=== PATIENT | male | born 1955 | race Caucasian/White ===

== ENCOUNTER 2017-10-27 01:44 | Inpatient (IN) | payer BC ==
[~2017-10-27] VITALS: Ht 170.2 cm; Wt 81.6 kg
[2017-10-27 01:44] VITALS: BP_SYST 197
[2017-10-27] MEDS ORDERED: NACL 0.9% 1,000 ML IV ONE (02:00)
[2017-10-27] MEDS ORDERED: ONDANSETRON HCL 4 MG/2 ML VIAL IVP ONE ×2 (02:00→10:01)
[2017-10-27] MEDS ORDERED: KETOROLAC TROMETHAMINE 30 MG VIAL IVP ONE ×2 (02:00→10:01)
[2017-10-27 02:15] LABS: BASOPHILS # (AUTO) 0.1 K/uL (0.0-0.2); EOSINOPHILS # (AUTO) 0.3 K/uL (0.0-0.4); EOSINOPHILS % (AUTO) 3.7 % (0.0-4.0); HEMATOCRIT 47.7 % (36-54); HEMOGLOBIN 15.5 g/dL (14.0-18.0); LYMPHOCYTES # (AUTO) 2.8 K/uL (1.0-5.5); LYMPHOCYTES % (AUTO) 38.7 % (20.5-51.5); MEAN CORPUSCULAR HEMOGLOBIN 29 pg (27-31); MEAN CORPUSCULAR HGB CONC 33 % (32-36); MEAN CORPUSCULAR VOLUME 90 fL (79.0-98.0); MONOCYTES # (AUTO) 0.7 K/uL (0.0-1.0); MONOCYTES % (AUTO) 9.6 % (1.7-9.3); NEUTROPHILS # (AUTO) 3.4 K/uL (1.8-7.7); PLATELET COUNT (AUTO) 178 K/uL (130-430); RED BLOOD CELL COUNT(AUTO) 5.27 MIL/uL (4.2-6.2); RED CELL DISTRIBUTION WIDTH 13.4 % (9.0-15.0); WHITE BLOOD COUNT (AUTO) 7.3 K/uL (4.8-10.8)
[2017-10-27 02:27] LABS: CALCIUM 9.4 mg/dL (8.4-11.0); CREATININE 0.82 mg/dL (0.55-1.30); POTASSIUM 3.5 mmol/L (3.5-5.1)
[2017-10-27] MEDS ORDERED: hydrALAZINE HCL 20 MG/ML VIAL IVP ONE (02:30)
[2017-10-27 02:31] LABS: ALBUMIN 3.6 g/dL (3.4-4.8); TOTAL BILIRUBIN 0.5 mg/dL (0.0-1.0)
[2017-10-27 02:32] LABS: PROTHROMBIN TIME 10.3 SECS (9.5-12.5)
[2017-10-27] MEDS ORDERED: fentaNYL CITRATE/PF 100 MCG/2 ML AMP IVP ONE ×6 (02:45→10:01)
[2017-10-27] MEDS ORDERED: ONDANSETRON HCL 4 MG/2 ML VIAL IVP PRN ×2 (03:45→11:00)
[2017-10-27] MEDS ORDERED: D5LR 1,000 ML IV SCH ×2 (03:45→21:00)
[2017-10-27] MEDS ORDERED: MORPHINE 2 MG/ML INJ. SYRINGE IVP PRN (03:45)
[2017-10-27] MEDS ORDERED: ACETAMINOPHEN 325 MG TABLET PO PRN (03:45)
[2017-10-27] MEDS ORDERED: fentaNYL CITRATE/PF 100 MCG/2 ML AMP ONE (03:53)
[2017-10-27] MEDS ORDERED: MIDAZOLAM HCL 5 MG/5 ML VIAL ONE ×2 (03:54→06:36)
[2017-10-27] MEDS ORDERED: LIDOCAINE VISCOUS 2%, 15 ML UDC ONE (04:00)
[2017-10-27] MEDS ORDERED: LIDOCAINE 2%, 20 ML MDV ONE ×3 (04:01→04:04)
[2017-10-27] MEDS ORDERED: MIDAZOLAM HCL 5 MG/5 ML VIAL IVP ONE ×2 (04:10→10:01)
[2017-10-27] MEDS ORDERED: LIDOCAINE JELLY 5 ML TUBE ONE (04:13)
[2017-10-27] MEDS ORDERED: LIDOCAINE 2%, 20 ML MDV INJ ONE ×2 (05:00)
[2017-10-27] MEDS ORDERED: MIDAZOLAM HCL 2 MG/2 ML VIAL (VERSED) IVP ONE ×3 (05:00)
[2017-10-27 05:30] VITALS: BP_SYST 173
[2017-10-27] MEDS: MORPHINE 4 MG/ML INJ. SYRINGE IVP PRN ×3 (06:10→23:52)
[2017-10-27] MEDS: MEPERIDINE HCL/PF 100 MG/ML AMP ONE ×2 (07:31→07:47)
[2017-10-27] MEDS: MIDAZOLAM HCL 5 MG/5 ML VIAL ONE ×4 (07:31→07:48)
[2017-10-27] MEDS ORDERED: MEPERIDINE HCL/PF 100 MG/ML AMP ONE (07:37)
[2017-10-27] MEDS ORDERED: SIMETHICONE 40 MG/0.6 ML ML ONE (07:38)
[2017-10-27] MEDS ORDERED: LORazepam 2 MG/ML VIAL IVP PRN ×2 (10:00)
[2017-10-27] MEDS ORDERED: IPRATROPIUM/ALBUTEROL SULFATE 3 ML AMPUL.NEB INH PRN (10:00)
[2017-10-27] MEDS ORDERED: METOPROLOL TARTRATE 5 MG/5 ML VIAL IVP ONE (10:01)
[2017-10-27] MEDS ORDERED: PROPOFOL 200MG/ 20ML VIAL (DIPRIVAN) IV ONE (10:01)
[2017-10-27] MEDS ORDERED: LR 1,000 ML IV.SOLN IV ONE (10:01)
[2017-10-27] MEDS ORDERED: ROCURONIUM BROMIDE 10 MG/ML (ZEMURON) IV ONE (10:01)
[2017-10-27] MEDS ORDERED: CEFAZOLIN 2 GM IVPB PREMIX 50 ML IV ONE (10:01)
[2017-10-27] MEDS ORDERED: NEOSTIGMINE METHYLSULFATE 1 MG/ML, 10 ML VIAL IVP ONE (10:01)
[2017-10-27] MEDS ORDERED: SEVOFLURANE 15 MIN GAS INH ONE (10:01)
[2017-10-27] MEDS ORDERED: NS IRRIG SOLN 1000 ML IR ONE (10:01)
[2017-10-27] MEDS ORDERED: GLYCOPYRROLATE 0.2 MG/ML VIAL IJ ONE (10:01)
[2017-10-27] MEDS ORDERED: LR 1,000 ML IV SCH (10:48)
[2017-10-27] MEDS ORDERED: HYDROmorphone 2 MG/ML VIAL IVP PRN ×2 (11:00)
[2017-10-27] MEDS: IPRATROPIUM/ALBUTEROL SULFATE 3 ML AMPUL.NEB INH SCH ×4 (11:00→23:13)
[2017-10-27] MEDS ORDERED: MEPERIDINE HCL/PF 25 MG/ML DISP.SYRIN IVP PRN ×2 (11:00)
[2017-10-27] MEDS ORDERED: KETOROLAC TROMETHAMINE 30 MG VIAL IVP PRN (11:00)
[2017-10-27] MEDS ORDERED: HYDROmorphone 1 MG INJ. 1 MG/ML AMPUL IVP PRN (11:00)
[2017-10-27] MEDS ORDERED: HYDROmorphone 1 MG INJ. 1 MG/ML AMPUL ONE (12:01)
[2017-10-27 12:20] VITALS: BP_SYST 150
[2017-10-27] MEDS: FOLIC ACID 1 MG, THIAMINE HCL 100 MG, MAGNESIUM SULFATE 1 GM, MVI 10 ML in NACL 0.9% 1,... IV SCH (12:49)
[2017-10-27] MEDS: LABETALOL 100 MG/ 20ML VIAL IVP PRN ×2 (13:24→14:53)
[2017-10-27 15:59] VITALS: BP_SYST 152
[2017-10-27 19:53] VITALS: BP_SYST 141
[2017-10-28 00:13] VITALS: BP_SYST 139
[2017-10-28] MEDS: IPRATROPIUM/ALBUTEROL SULFATE 3 ML AMPUL.NEB INH SCH ×6 (03:38→23:18)
[2017-10-28 04:01] VITALS: BP_SYST 139
[2017-10-28] MEDS: MORPHINE 4 MG/ML INJ. SYRINGE IVP PRN ×4 (06:23→21:47)
[2017-10-28 07:06] LABS: BASOPHILS % (AUTO) 0.1 % (0.0-2.0); HEMATOCRIT 42.5 % (36-54); HEMOGLOBIN 14.1 g/dL (14.0-18.0); LYMPHOCYTES # (AUTO) 1.3 K/uL (1.0-5.5); LYMPHOCYTES % (AUTO) 12.3 % (20.5-51.5); MEAN CORPUSCULAR HEMOGLOBIN 30 pg (27-31); MEAN CORPUSCULAR HGB CONC 33 % (32-36); MEAN CORPUSCULAR VOLUME 91 fL (79.0-98.0); MONOCYTES # (AUTO) 0.8 K/uL (0.0-1.0); MONOCYTES % (AUTO) 7.7 % (1.7-9.3); NEUTROPHILS # (AUTO) 8.8 K/uL (1.8-7.7); NEUTROPHILS % (AUTO) 79.9 % (40.0-70.0); PLATELET COUNT (AUTO) 165 K/uL (130-430); RED BLOOD CELL COUNT(AUTO) 4.68 MIL/uL (4.2-6.2); RED CELL DISTRIBUTION WIDTH 13.5 % (9.0-15.0); WHITE BLOOD COUNT (AUTO) 10.9 K/uL (4.8-10.8)
[2017-10-28 07:21] LABS: CALCIUM 8.4 mg/dL (8.4-11.0); CREATININE 0.76 mg/dL (0.55-1.30); POTASSIUM 4.3 mmol/L (3.5-5.1)
[2017-10-28 07:29] LABS: ALBUMIN 2.8 g/dL (3.4-4.8); TOTAL BILIRUBIN 0.5 mg/dL (0.0-1.0)
[2017-10-28 07:49] VITALS: BP_SYST 139
[2017-10-28] MEDS: FOLIC ACID 1 MG, THIAMINE HCL 100 MG, MAGNESIUM SULFATE 1 GM, MVI 10 ML in NACL 0.9% 1,... IV SCH (10:30)
[2017-10-28] MEDS ORDERED: IPRATROPIUM/ALBUTEROL SULFATE 3 ML AMPUL.NEB ONE (11:04)
[2017-10-28 11:28] VITALS: BP_SYST 139
[2017-10-28] MEDS ORDERED: INSULIN REGULAR, HUMAN 100 UNITS/ML, 10 ML VIAL (novoLIN R) SUBCUT PRN (12:45)
[2017-10-28] MEDS ORDERED: DEXTROSE 50% JECT 50 ML DISP.SYRIN IVP PRN (12:45)
[2017-10-28] MEDS ORDERED: *PPN PER PHARMACY XX PRN (12:45)
[2017-10-28 12:55] LABS: CHOLESTEROL 213 mg/dL (<200); HDL CHOLESTEROL 80 mg/dL (>45); LDL CHOLESTEROL 120 mg/dL (<100); TRIGLYCERIDES 35 mg/dL (30-150)
[2017-10-28 15:30] VITALS: BP_SYST 154
[2017-10-28 20:00] VITALS: BP_SYST 163
[2017-10-28] MEDS: LABETALOL 100 MG/ 20ML VIAL IVP PRN (21:49)
[2017-10-28] MEDS: D5LR 1,000 ML IV SCH (23:30)
[2017-10-29] VITALS (9 sets, daily range): BP systolic 138–186
[2017-10-29] MEDS: MORPHINE 4 MG/ML INJ. SYRINGE IVP PRN ×5 (01:51→22:32)
[2017-10-29] MEDS: IPRATROPIUM/ALBUTEROL SULFATE 3 ML AMPUL.NEB INH SCH ×6 (02:55→23:28)
[2017-10-29 07:04] LABS: BASOPHILS % (AUTO) 0.5 % (0.0-2.0); EOSINOPHILS # (AUTO) 0.1 K/uL (0.0-0.4); EOSINOPHILS % (AUTO) 1.3 % (0.0-4.0); HEMATOCRIT 43.9 % (36-54); HEMOGLOBIN 14.5 g/dL (14.0-18.0); LYMPHOCYTES % (AUTO) 21.6 % (20.5-51.5); MEAN CORPUSCULAR HEMOGLOBIN 30 pg (27-31); MEAN CORPUSCULAR HGB CONC 33 % (32-36); MEAN CORPUSCULAR VOLUME 90 fL (79.0-98.0); MONOCYTES # (AUTO) 0.9 K/uL (0.0-1.0); MONOCYTES % (AUTO) 10.1 % (1.7-9.3); NEUTROPHILS # (AUTO) 6.2 K/uL (1.8-7.7); NEUTROPHILS % (AUTO) 66.5 % (40.0-70.0); PLATELET COUNT (AUTO) 153 K/uL (130-430); RED BLOOD CELL COUNT(AUTO) 4.87 MIL/uL (4.2-6.2); WHITE BLOOD COUNT (AUTO) 9.2 K/uL (4.8-10.8)
[2017-10-29 07:36] LABS: ALBUMIN 2.9 g/dL (3.4-4.8); BILIRUBIN,DIRECT 0.3 mg/dL (0.0-0.3); CALCIUM 8.5 mg/dL (8.4-11.0); CREATININE 0.59 mg/dL (0.55-1.30); PHOSPHORUS 2.9 mg/dL (2.7-4.5); TOTAL BILIRUBIN 0.7 mg/dL (0.0-1.0)
[2017-10-29] MEDS: D5LR 1,000 ML IV SCH ×2 (07:36→21:34)
[2017-10-29] MEDS: LABETALOL 100 MG/ 20ML VIAL IVP PRN ×2 (13:44→23:30)
[2017-10-29] MEDS ORDERED: TPN PERIPHERAL 0.0001 ML, SODIUM CHLORIDE 40 MEQ, POTASSIUM CHLORIDE 20 MEQ, K PHOS 9 M... IV SCH ×10 (18:00)
[2017-10-29] MEDS ORDERED: FAT EMULSIONS 250 ML IV SCH (18:00)
[2017-10-30] VITALS (9 sets, daily range): BP systolic 110–178
[2017-10-30] MEDS: MORPHINE 4 MG/ML INJ. SYRINGE IVP PRN ×2 (03:05→12:57)
[2017-10-30] MEDS: LABETALOL 100 MG/ 20ML VIAL IVP PRN ×2 (04:00→14:24)
[2017-10-30] MEDS: IPRATROPIUM/ALBUTEROL SULFATE 3 ML AMPUL.NEB INH SCH ×4 (04:07→15:49)
[2017-10-30] MEDS: D5LR 1,000 ML IV SCH (05:19)
[2017-10-30 07:32] LABS: INR 1.1 (0.80-1.20); PROTHROMBIN TIME 11.1 SECS (9.5-12.5)
[2017-10-30 07:39] LABS: ALBUMIN 2.7 g/dL (3.4-4.8); BILIRUBIN,DIRECT 0.3 mg/dL (0.0-0.3); TOTAL BILIRUBIN 0.9 mg/dL (0.0-1.0)
[2017-10-30] MEDS ORDERED: LOSARTAN POTASSIUM 50 MG TABLET (COZAAR) PO ONE (18:45)
== END 2017-10-30 18:55 | disposition home or self-care (01) | DRG 327 ==
LOC: SED 01:44 → STU 03:39 → SMU 10-28 19:30
PROVIDERS: ADMIT Internal Medicine; ATTEND Internal Medicine
PROC: 0BJ08ZZ Inspection of Tracheobronchial Tree, Via Natural or Artificial Opening Endoscopic (ICD-10-PCS; 2017-10-27)
PROC: 0DBU0ZZ Excision of Omentum, Open Approach (ICD-10-PCS; 2017-10-27)
PROC: 0DJ08ZZ Inspection of Upper Intestinal Tract, Via Natural or Artificial Opening Endoscopic (ICD-10-PCS; 2017-10-27)
PROC: 0DC60ZZ Extirpation of Matter from Stomach, Open Approach (ICD-10-PCS; principal; 2017-10-27 04:00)
DX: T18.2XXA Foreign body in stomach, initial encounter (principal); K42.0 Umbilical hernia with obstruction, without gangrene; E44.0 Moderate protein-calorie malnutrition; F17.210 Nicotine dependence, cigarettes, uncomplicated; K74.60 Unspecified cirrhosis of liver; I70.90 Unspecified atherosclerosis; F10.20 Alcohol dependence, uncomplicated; Y90.9 Presence of alcohol in blood, level not specified; H54.61 Unqualified visual loss, right eye, normal vision left eye; I10 Essential (primary) hypertension; J44.9 Chronic obstructive pulmonary disease, unspecified; X58.XXXA Exposure to other specified factors, initial encounter; Y93.89 Activity, other specified; Y92.89 Other specified places as the place of occurrence of the external cause; Y99.8 Other external cause status; Z68.28 Body mass index [BMI] 28.0-28.9, adult
CPT/HCPCS: 31625; 36415; 43235; 71020-TC; 76700-TC; 80053; 80061; 80076; 82248-TC; 82962; 83735-TC; 84100-TC; 84478-TC; 85025; 85610-TC; 85730-TC; 87070-TC; 87075-TC; 87081; 93005; 93306; 94640; 94760; 96374; 96375; 99285; J0360; J0610; J0690; J1170; J1885; J1956; J2001; J2060; J2175; J2250; J2270; J2405; J2704; J2710; J3010; J3411; J3465; J3475; J3480; J3490; J7030; J7120; J7131

== ENCOUNTER 2019-02-23 06:20 | Inpatient (IN) | payer OTHER ==
[~2019-02-23] VITALS: Ht 170.2 cm; Wt 80.7 kg
[~2019-02-23 06:20] MED LIST: LOSA50TA3 PO; SOFO1TAB PO
[2019-02-23] MEDS ORDERED: LevALBUTEROL HCL 1.25 MG/0.5 ML *CONC.* VIAL.NEB (XOPENEX CONC.) INH ONE ×2 (07:15→08:06)
[2019-02-23] MEDS ORDERED: CEFAZOLIN SOD 1 GM/ ISO 50 ML PREMIX IV ONE (07:15)
[2019-02-23] MEDS ORDERED: POLYMYXIN 500,000/BACIT.10,000 UNITS in NS IRR 1 L IR ONE ×2 (08:14→10:15)
[2019-02-23] MEDS ORDERED: ONDANSETRON HCL 4 MG/2 ML VIAL IVP ONE (08:55)
[2019-02-23] MEDS ORDERED: LR 1,000 ML IV.SOLN IV ONE (08:55)
[2019-02-23] MEDS ORDERED: NS 100 ML BAG IV ONE (08:55)
[2019-02-23] MEDS ORDERED: DEXAMETHASONE SOD PHOSPHATE 4 MG/ML VIAL IVP ONE (08:55)
[2019-02-23] MEDS ORDERED: KETOROLAC TROMETHAMINE 30 MG VIAL IVP ONE (08:55)
[2019-02-23] MEDS ORDERED: SEVOFLURANE 15 MIN GAS INH ONE (08:55)
[2019-02-23] MEDS ORDERED: MIDAZOLAM HCL 5 MG/5 ML VIAL IVP ONE (08:55)
[2019-02-23] MEDS ORDERED: ROPIVACAINE HCL/PF 5 MG/ML 0.5% 30 ML VIAL INJ ONE (08:55)
[2019-02-23] MEDS ORDERED: fentaNYL CITRATE 250 MCG/5 ML AMP IV ONE (08:55)
[2019-02-23] MEDS ORDERED: ROCURONIUM BROMIDE 10 MG/ML (ZEMURON) IV ONE (08:55)
[2019-02-23] MEDS ORDERED: BUPIVACAINE LIPOSOME/PF 266 MG/20 ML VIAL INFIL ONE (09:46)
[2019-02-23] MEDS ORDERED: LR 1,000 ML IV SCH (10:22)
[2019-02-23] MEDS ORDERED: HYDROmorphone 2 MG/ML VIAL IVP PRN ×2 (10:30)
[2019-02-23] MEDS ORDERED: MEPERIDINE HCL/PF 25 MG/ML DISP.SYRIN IVP PRN (10:30)
[2019-02-23] MEDS ORDERED: HYDROmorphone 1 MG INJ. 1 MG/ML AMPUL IVP PRN (10:30)
[2019-02-23] MEDS ORDERED: ONDANSETRON HCL 4 MG/2 ML VIAL IVP PRN (10:45)
[2019-02-23] MEDS ORDERED: ACETAMINOPHEN 325 MG TABLET PO PRN (10:45)
[2019-02-23] MEDS ORDERED: HYDROcodone/ACETAMIN 5-325 MG TAB (NORCO/ VICODIN) PO PRN ×2 (10:45)
[2019-02-23] MEDS ORDERED: HYDROmorphone 1 MG INJ. 1 MG/ML AMPUL ONE (11:46)
--- NOTE | 2019-02-23 11:56 | NUR ---
admission notes rec patient from rr s/p ventral hernia repair. awake alert with ivf infusing well on the l wrist. no infiltration noted. abd dressing intact and binder in place. no bleeding noted. denies pain at this time.
[2019-02-23 12:00] VITALS: BP_SYST 132
[2019-02-23 13:26] VITALS: BP_SYST 135
[2019-02-23] MEDS: HYDROmorphone 1 MG INJ. 1 MG/ML AMPUL IVP PRN ×2 (13:37→18:23)
--- NOTE | 2019-02-23 14:54 | NUR ---
rounds asleep at this time. call light within reached.
[2019-02-23 16:25] VITALS: BP_SYST 125
[2019-02-23] MEDS: CEFAZOLIN 1 GM IVPB PREMIX 50 ML IV SCH ×2 (18:19→18:45)
[2019-02-23] MEDS: D5/0.45 NS 1,000 ML IV SCH ×2 (18:19→20:44)
--- NOTE | 2019-02-23 18:45 | NUR ---
closing notes pt was medicated for pain as ordered. abd dressing with binder in place. no sob noted. bed to the lowest position and side rails up and locked. call light within reached.
--- NOTE | 2019-02-23 19:28 | NUR ---
OPENING NOTES Pt and endorsement received from day shift nurse. Pt is AAOx4, lying in bed. No complains of pain at this time. No signs of acute distress or SOB noted. Pt on O2 inhalation at 2L/min via nasal cannula. Pt on IVF of D5,0.45NS at 100ml/hr and infusing well on left wrist G20. Encouraged to use call light when needed. Safety precautions in place with 3 side rails up, bed alarm on, locked and in lowest position. Call light with pt. Will continue to monitor.
[2019-02-23 20:51] VITALS: BP_SYST 145
[2019-02-23] MEDS: FAMOTIDINE PF 20 MG/2 ML VIAL IVP SCH (20:55)
--- NOTE | 2019-02-23 22:20 | NUR ---
RESTING Pt is resting in bed with both eyes closed. With visible chest rise and fall with unlabored breathing noted. IVF infusing well. No complains of pain or discomfort. No signs of acute distress or SOB noted. Safety precautions in place and call light with pt. Will continue to monitor.
[2019-02-24] MEDS: HYDROmorphone 1 MG INJ. 1 MG/ML AMPUL IVP PRN ×2 (00:03→05:27)
--- NOTE | 2019-02-24 00:03 | NUR ---
DILAUDED 1MG GIVEN Pt complained of left side abdominal pain with a scale of 7/10. Dilauded 1mg IVP given as ordered. Encouraged deep breathing exercises and use of incentive spirometer, pt able to inspire 1500ml of air. No signs of acute distress or SOB noted. Safety precautions in place and call light with pt. Will continue to monitor.
[2019-02-24 00:17] VITALS: BP_SYST 118
[2019-02-24 00:19] VITALS: BP_SYST 126
--- NOTE | 2019-02-24 03:20 | NUR ---
RESTING Pt is resting in bed with both eyes closed. With visible chest rise and fall with unlabored breathing noted. IVF infusing well. No complains of pain or discomfort at this time. No signs of acute distress or SOB noted. Safety precautions in place and call light with pt. Will continue to monitor.
[2019-02-24] MEDS: D5/0.45 NS 1,000 ML IV SCH (03:23)
--- NOTE | 2019-02-24 05:27 | NUR ---
DILAUDED 1MG GIVEN Pt complained of abdominal pain with a scale of 10/10. Dilauded 1mg IVP given as ordered. Reencouraged deep breathing exercises and use of incentive spirometer. Encouraged position of comfort. No signs of acute distress or SOB noted. Safety precautions in place and call light with pt. Will continue to monitor.
--- NOTE | 2019-02-24 06:24 | NUR ---
CLOSING NOTES Pt is resting in bed with both eyes closed. With visible chest rise and fall with unlabored breathing noted. IVF patent and infusing well. No complains of pain at this time. No signs of acute distress or SOB noted. All needs attended throughout the shift. Safety precautions maintained with 3 side rails up, bed alarm on, locked and in lowest position. Call light with pt. Will endorse to day shift nurse.
[2019-02-24 08:09] VITALS: BP_SYST 133
--- NOTE | 2019-02-24 08:15 | NUR ---
OPENING NOTES patient is resting in bed A&O x4, patient denies any acute distress or pain at this time, breathing is even and unlabored on 2l nasal cannula, educated patient on plan of care and call light system, will continue to monitor, safety precautions in place, call light within reach.
[2019-02-24] MEDS: FAMOTIDINE PF 20 MG/2 ML VIAL IVP SCH (08:48)
[2019-02-24] MEDS ORDERED: LOSARTAN POTASSIUM 50 MG TABLET (COZAAR) PO SCH (09:00)
[2019-02-24] MEDS ORDERED: ENOXAPARIN SODIUM 30 MG/0.3 ML SYRINGE SUBCUT SCH (09:00)
--- NOTE | 2019-02-24 10:12 | NUR ---
NOTES patient is resting in bed watching tv, patient denies any acute distress, pain is controlled at this time, IVF infusing as ordered, will continue to monitor, safety precautions in place, call light within reach.
--- NOTE | 2019-02-24 12:10 | NUR ---
NOTES patient ambulated well, now sitting in chair at bedside, no sob n/v.
[2019-02-24 12:11] VITALS: BP_SYST 133
[2019-02-24 12:47] VITALS: BP_SYST 147
== END 2019-02-24 13:10 | disposition home or self-care (01) | DRG 337 ==
LOC: SMU 06:20 → EDSTATUS 08:30 → SMU 09:32
PROVIDERS: ADMIT Colon & Rectal Surgery; ATTEND Colon & Rectal Surgery
PROC: 0DNU0ZZ Release Omentum, Open Approach (ICD-10-PCS; 2019-02-23)
PROC: 0WUF0JZ Supplement Abdominal Wall with Synthetic Substitute, Open Approach (ICD-10-PCS; principal; 2019-02-23 08:30)
DX: K43.0 Incisional hernia with obstruction, without gangrene (principal); K66.0 Peritoneal adhesions (postprocedural) (postinfection)
CPT/HCPCS: 87081; 94664; 94760; C1781; C9290; J0690; J1100; J1170; J1650; J1885; J2250; J2405; J3010; J3490; J7120; J7612

== ENCOUNTER 2020-09-28 06:20 | Emergency (ER) | payer OTHER ==
[~2020-09-28] VITALS: Ht 170.2 cm; Wt 74.8 kg
[2020-09-28 06:30] VITALS: BP_SYST 169
[2020-09-28] MEDS ORDERED: CLINDAMYCIN HCL 150 MG CAPSULE PO ONE (07:00)
[2020-09-28 07:12] VITALS: BP_SYST 169
== END 2020-09-28 07:11 | disposition home or self-care (01) ==
LOC: SED 06:20
DX: L03.116 Cellulitis of left lower limb (principal); L03.115 Cellulitis of right lower limb; I10 Essential (primary) hypertension; M79.662 Pain in left lower leg; M79.661 Pain in right lower leg; F11.10 Opioid abuse, uncomplicated; F12.90 Cannabis use, unspecified, uncomplicated; F15.90 Other stimulant use, unspecified, uncomplicated; Z87.891 Personal history of nicotine dependence
CPT/HCPCS: 99283